=== PATIENT | male | born 1945 ===

== ENCOUNTER → 2016-09-03 | Outpatient (CLI) | payer OTHER, MEDICARE | LOC: BHLMT 11:30 | PROVIDERS: ATTEND Internal Medicine Interventional Cardiology | DX: I48.0 Paroxysmal atrial fibrillation (principal); I35.0 Nonrheumatic aortic (valve) stenosis; I35.1 Nonrheumatic aortic (valve) insufficiency; I34.0 Nonrheumatic mitral (valve) insufficiency; I10 Essential (primary) hypertension; E78.00 Pure hypercholesterolemia, unspecified | CPT/HCPCS: 93005-PO ==